=== PATIENT | male | born 1990 | race Caucasian/White ===

== ENCOUNTER 2019-07-18 02:45 | Emergency (ER) | payer OTHER ==
[~2019-07-18] VITALS: Ht 172.7 cm; Wt 59.0 kg
[2019-07-18 03:06] VITALS: BP 124/74
[2019-07-18 05:15] LABS: Basophils # (auto) 0 uL; Basophils % (auto) 0.5 % (0.0-2.0); Eosinophils # (auto) 0.2 uL; Eosinophils % (auto) 2.4 % (0.0-7.0); Hematocrit 45.8 % (41.0-53.0); Hemoglobin 15.5 g/dL (13.5-17.5); Lymphocytes # (auto) 2.7 uL; Lymphocytes % (auto) 37.7 % (10.0-50.0); Mean Corpuscular Hgb Conc. 33.9 g/dL (32.0-36.0); Mean Corpuscular Volume 91.5 fL (80.0-100.0); Monocytes # (auto) 0.4 uL; Monocytes % (auto) 5.7 % (0.0-12.0); Neutrophils # (auto) 3.8 uL; Neutrophils % (auto) 53.7 % (37.0-80.0); Nucleated Red Blood Cells % 0.1 %; Platelet Count (auto) 143 10^3/uL (140-450); Red Blood Cells 5.01 10^6/uL (4.5-5.90); Red Cell Distribution Width 13.6 % (11.8-14.3); White Blood Cell 7.1 10^3/uL (4.4-10.8)
[2019-07-18 05:25] LABS: Potassium 4.4 mmol/L (3.5-5.1)
[2019-07-18 05:32] LABS: Albumin 3.7 g/dL (3.4-5.0); BUN/Creatinine Ratio 15.4; Bilirubin, Total 0.3 mg/dL (0.2-1.0); Calcium 8.9 mg/dL (8.5-10.1); Total Protein 6.9 g/dL (6.4-8.2)
== END 2019-07-18 09:39 | disposition left against medical advice (07) ==
LOC: EDBD 02:45 → ER 02:45
DX: R55 Syncope and collapse (principal); F41.9 Anxiety disorder, unspecified; F17.210 Nicotine dependence, cigarettes, uncomplicated
CPT/HCPCS: 36415; 70450; 80053; 84484; 85025